=== PATIENT | male | born 1990 | race Caucasian/White ===

== ENCOUNTER 2020-04-06 07:30 | Inpatient (IN) | payer OTHER, SELFPAY ==
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
[2020-04-06] MEDS: ondansetron HCL 4 MG/2 ML VIAL IVPUSH ×2 (07:45→11:43)
--- NOTE | 2020-04-06 07:45 | ECG_ITS ---
Test Reason : NAUSEA Blood Pressure : / mmHG Vent. Rate : 055 BPM Atrial Rate : 055 BPM P-R Int : 116 ms QRS Dur : 084 ms QT Int : 462 ms P-R-T Axes : 068 053 066 degrees QTc Int : 441 ms Sinus bradycardia with sinus arrhythmia T-wave inversion in Septal leads Abnormal ECG No previous ECGs available Referred By: Araseli Upton Electronically Signed By:KENYA SHARMA MD
[2020-04-06] MEDS: Metoclopramide HCl 10 MG/2 ML VIAL 5 MG IVPUSH ×2 (07:51→15:41)
[2020-04-06] MEDS: 0.9 % Sodium Chloride 1,000 ML 999 ML IVCONT ×3 (07:51→11:43)
[2020-04-06] MEDS: diphenhydrAMINE HCL 50 MG/ML VIAL 25 MG IVPUSH (07:52)
[2020-04-06 07:57] VITALS: BP 126/96; PULSE 61; RESP 18; TEMP 34.9; O2SAT 100; BMI 29.8
[2020-04-06 08:04] LABS: MANUAL DIFF FLAG NO
[2020-04-06 08:06] LABS: Basophils Absolute Auto 0.1 X10*3/uL (0.0-0.2); Basophils Percent Auto 0.3 % (0-2); Eosinophils Absolute Auto 0.1 X10*3/uL (0.0-0.4); Eosinophils Percent Auto 0.9 % (0-4); Hematocrit 47.3 % (42-52); Hemoglobin 15.2 g/dl (14.0-18.0); Imm Gran Abs Auto 0.06 X10*3/uL (0.00-0.03); Imm Gran Pct Auto 0.4 % (0.0-0.4); Lymphocytes Percent Auto 13.4 % (20-40); Mean Corpuscular HGB Conc 32.1 g/dl (31.0-36.0); Mean Corpuscular Hemoglobin 27.6 pg (27.0-33.0); Mean Corpuscular Volume 85.8 fL (80-98); Mean Platelet Volume 11.1 fL (9.4-12.4); Monocytes Absolute Auto 0.5 X10*3/uL (0.1-1.2); Monocytes Percent Auto 3.5 % (2-11); Neutrophils Absolute Auto 12.2 X10*3/uL (2.0-8.3); Neutrophils Percent Auto 81.5 % (45-73); Platelet Count 226 X10*3/uL (160-400); Red Blood Count 5.51 X10*6/uL (4.60-5.80); Red Cell Distribution Width 14.3 % (11.0-16.0)
[2020-04-06] MEDS: Haloperidol Lactate 5 MG/ML VIAL IM (08:20)
--- NOTE | 2020-04-06 08:20 | PC.NURSE ---
PT CONTINUOS ON FEELING NAUSEAS, AND DRY HEAVING AFTER THE REGLAN. PT MEDICATED WITH HALDOL IM IN THE LEFT DELTOID. PT'S COLOR IMPROVING NOT PALE AT THIS TIME
[2020-04-06 08:32] LABS: Alanine Aminotransferase 23 U/L (0-40); Albumin Level 4.6 g/dL (3.5-5.0); Alkaline Phosphatase 64 U/L (39-117); Anion Gap 14 (12-20); Aspartate Amino Transferase 24 U/L (5-37); Bilirubin Direct < 0.2 mg/dL (0.0-0.5); Bilirubin Total 0.4 mg/dL (0.0-1.0); Blood Urea Nitrogen 14 mg/dL (9-16); Calcium 9.2 mg/dL (8.4-10.2); Carbon Dioxide 23 mmol/L (22-29); Chloride 104 mmol/L (96-108); Creatinine Clr Calc Pharmacy 94.1; Estimated Glomerular Filt Rate > 60; Glucose Random 143 mg/dL (60-115); Lipase 37 U/L (8-78); Magnesium 1.9 mg/dL (1.6-2.6); Potassium 4.6 mmol/l (3.3-5.1); Sodium 136 mmol/L (135-145); Total Protein 7.8 g/dL (6.5-8.0)
[2020-04-06 08:58] VITALS: BP 119/76; PULSE 55; RESP 16; O2SAT 100
[2020-04-06] MEDS: LORazepam 2 MG/ML VIAL 1 MG IVPUSH ×2 (09:11→10:25)
--- NOTE | 2020-04-06 09:45 | PC.NURSE ---
PT IS CURRENTLY RESTING IN THE STRETCHER WITH EYES SHUT, NO DRY HEAVING/VOMITING AT THIS TIME
--- NOTE | 2020-04-06 10:15 | PC.NURSE ---
PT VOMITED AGAIN, PLAN TO ADMIT TO THE HOSPITAL
[2020-04-06 10:25] VITALS: BP 117/78; PULSE 63; RESP 18; TEMP 36.7; O2SAT 100
--- NOTE | 2020-04-06 10:33 | XR_ITS ---
EXAMINATION: XR CHEST CLINICAL INFORMATION: Vomiting. COMPARISON: None TECHNIQUE: Frontal view of the chest was obtained. FINDINGS: Mild asymmetric markings are seen at the right lung base. The left lung is clear. The heart and mediastinal structures are unremarkable. XR/XR chest 1V IMPRESSION: Mild asymmetric markings at the right lung base appears to be secondary to summation artifact of overlying structures. Infiltrate or atelectasis would be less likely. If there is concern for infiltrate, a repeat study including right oblique and lateral views would be helpful.
[2020-04-06] MEDS: Famotidine/PF 20 MG/2 ML VIAL IVPUSH (11:04)
[2020-04-06 11:16] LABS: COVID-19 Test Negative (Negative); IDNOW Serial# 9DD0AD1C
--- NOTE | 2020-04-06 11:27 | PC.NURSE ---
Pt sleeping, has IVF running. HE was medicated for nausea as ordered.
[2020-04-06 11:39] VITALS: BP 107/56; PULSE 67; RESP 16; O2SAT 100
--- NOTE | 2020-04-06 11:48 | PM.IMHP ---
History of Present Illness Date of Service: 04/06/20 Chief Complaint: nausea and vomiting this is a 29-year-old male who presents to the emergency department with nausea and vomiting. Patient was in his usual state of health when he woke up this morning. He took his daily medication around 630. Shortly after he began having nausea and numerous episodes of nonbloody emesis. He also reports 1 episode of diarrhea. He has associated chills. He denies any abdominal pain. Lab work was significant for leukocytosis of 15,000 and was otherwise unremarkable. He received numerous doses of antiemetics including diphenhydramine, ondansetron, Reglan, Ativan, Haldol as well as Pepcid. However patient continued to have episodes of vomiting. He has never had a similar occurrence in the past. He denies any recent travel. He did eat a hamburger from [employer] yesterday. he denies any sick contacts. Review of Systems Review of Systems: Yes all other systems are reviewed and are negative Cardiovascular: Cardiovascular: Denies dyspnea Respiratory: Respiratory: Denies cough and Denies dyspnea Gastrointestinal: Gastrointestinal: Denies abdominal pain, Reports diarrhea, Reports nausea and Reports vomiting [facility] Medical History (Updated 04/06/20 @ 11:52 by ZOYA [place]) Depressed Marie's thyroiditis HTN (hypertension) Tobacco dependence Functional capacity: independent ambulation Family History (Updated 04/06/20 @ 11:52 by ZOYA [place]) Other No history of heart disease Surgical History (Updated 04/06/20 @ 11:52 by ZOYA [place]) H/O right inguinal hernia repair Social History (Updated 04/06/20 @ 11:52 by ZOYA [place]) Alcohol intake: never Smoking Status: Current every day smoker Packs Per Day: 0.5 Use of substances other than those prescribed or required for medical reasons: Yes Substance Use Type: Marijuana Substance Use Frequency: Daily Last Used Substance: Hours (ago) Any prior treatment program specific to substance use: No Advance Directives: No Advance Directives Information Provided: No Meds Allergies Allergy/AdvReac Type Severity Reaction Status Date / Time No Known Allergies Allergy Verified 04/06/20 07:45 Home Medications Medication Instructions Recorded Confirmed Type aripiprazole [Abilify] 1 tab PO DAILY 04/06/20 04/06/20 History atenolol 25 mg PO DAILY 04/06/20 04/06/20 History fluvoxamine 1 tab PO BID 04/06/20 04/06/20 History hydroxyzine HCl 1 mg PO TID 04/06/20 04/06/20 History lisdexamfetamine [Vyvanse] 1 cap PO QAM 04/06/20 04/06/20 History prazosin 1 mg PO TID 04/06/20 04/06/20 History Physical Exam Vital Signs and Narrative: Vital Signs: Last Vital Signs Temp 98.0 F 04/06/20 10:25 Pulse 67 04/06/20 11:39 Resp 16 04/06/20 11:39 BP 107/56 L 04/06/20 11:39 Pulse Ox 100 04/06/20 11:39 Body Mass Index 29.8 Const: Nutritional Appearance: well nourished Orientation/consciousness: patient oriented x3 HENMT: Head: Yes normocephalic and Yes atraumatic Eyes: Sclerae: sclerae normal Chest: Chest palpation & inspection: normal inspection of the chest Resp: Effort & Inspection: normal respiratory effort and no respiratory distress Auscultation: clear to auscultation bilaterally Cardio: Rate: regular rate Rhythm: regular rhythm GI: Palpation (GI): Soft to palpation and nontender Skin: General skin exam: no rashes or lesions noted Neuro: General: patient oriented x3 Cranial nerves: Yes CN's II-XII intact bilaterally and Yes Bilaterally intact EOM present Extrem: General: Yes normal to inspection Results Labs CBC and Chem 7: 04/06/20 07:56 04/06/20 07:56 Labs: Laboratory Results - last 24 hr 04/06/20 04/06/20 04/06/20 07:56 07:56 07:56 MCV 85.8 MCH 27.6 MCHC 32.1 RDW 14.3 Plt Count 226 MPV 11.1 Immature Gran % (Auto) 0.4 Neut % (Auto) 81.5 H Lymph % (Auto) 13.4 L [place] % (Auto) 3.5 Eos % (Auto) 0.9 Baso % (Auto) 0.3 Lymph # (Auto) 2.0 [place] # (Auto) 0.5 Eos # (Auto) 0.1 Baso # (Auto) 0.1 Abs Immat Gran (auto) 0.06 H Absolute Neuts (auto) 12.2 H Absolute Nucleated RBC 0.000 Nucleated RBC % (auto) 0.0 Hold Blue Top SEE NOTE Anion Gap 14 Estim Creat Clear Calc 94.1 Estimated GFR > 60 Random Glucose 143 H Calcium 9.2 Magnesium 1.9 Total Bilirubin 0.4 Direct Bilirubin < 0.2 AST 24 ALT 23 Alkaline Phosphatase 64 Total Protein 7.8 Albumin 4.6 Lipase 37 COVID-19 ([facility]) COVID-19 Clin Com 04/06/20 10:29 MCV MCH MCHC RDW Plt Count MPV Immature Gran % (Auto) Neut % (Auto) Lymph % (Auto) [place] % (Auto) Eos % (Auto) Baso % (Auto) Lymph # (Auto) [place] # (Auto) Eos # (Auto) Baso # (Auto) Abs Immat Gran (auto) Absolute Neuts (auto) Absolute Nucleated RBC Nucleated RBC % (auto) Hold Blue Top Anion Gap Estim Creat Clear Calc Estimated GFR Random Glucose Calcium Magnesium Total Bilirubin Direct Bilirubin AST ALT Alkaline Phosphatase Total Protein Albumin Lipase COVID-19 ([facility]) Negative COVID-19 Clin Com See Note Imaging Radiologist's Impressions: Impressions Chest X-Ray 04/06/20 10:33 IMPRESSION: Mild asymmetric markings at the right lung base appears to be secondary to summation artifact of overlying structures. Infiltrate or atelectasis would be less likely. If there is concern for infiltrate, a repeat study including right oblique and lateral views would be helpful. Assessment and Plan (1) Vomiting: Qualifiers: Nausea presence: with nausea Vomiting Intractability: intractable Vomiting type: unspecified Qualified Code(s): R11.2 - Nausea with vomiting, unspecified Status: Acute this is a 29-year-old male with a history of hypertension, depression, thyroid disease who presents with intractable nausea and vomiting. Intractable nausea and vomiting possibly related to underlying marijuana use - IV fluid, antiemetics, supportive care QTC today normal, will repeat EKG in a.m. given his numerous meds received in the ED in multiple medications which can prolonged QT leukocytosis likely reactive, follow CBC tobacco dependence - nicotine replacement therapy hypertension blood pressure soft - hold atenolol mood continue home medications DVT prophylaxis- low risk mechanical devices code status- full code this case was discussed with
[2020-04-06 12:34] VITALS: BP 111/78; PULSE 69; RESP 16; O2SAT 100
[2020-04-06 14:39] VITALS: BP 128/67; PULSE 67; RESP 17; TEMP 36.2; O2SAT 100
[2020-04-06 15:19] LABS: Glucose, Whole Blood 118 mg/dL (60-115)
--- NOTE | 2020-04-06 15:30 | PM.EVENT ---
Event Note Date of Service: 04/06/20 Event Note: 29-year-old gentleman with past medical history of Marie's thyroiditis, history of hypertension and depression presented to [facility] with acute onset of nausea vomiting with multiple episodes of nonbloody emesis [place] [id number] patient received multiple dosages of anti emetics and anxiolytics and Pepcid in the ER but since symptoms persisted patient has been admitted for intractable nausea vomiting examination vitals stable abdominal examination nontender, extremities no edema assessment and plan intractable nausea vomiting agree with treatment plan as per APC
[2020-04-06] MEDS: 0.9 % Sodium Chloride Flush 3 ML SYRINGE IVFLUSH (15:45)
[2020-04-06] MEDS: 0.9 % Sodium Chloride 1,000 ML 125 ML IVCONT (15:46)
--- NOTE | 2020-04-06 17:25 | PC.NURSE ---
Patient left AMA, educated on risks of leaving, signs and sx to return to ED. Pt verbalized understanding. aware. IV removed. AMA papers signed.
--- NOTE | 2020-05-03 18:56 | PM.EVENT ---
Event Note Date of Service: 04/06/20 Event Note: Discharge diagnosis Intractable nausea vomiting Leukocytosis Tobacco dependence Hypertension Hospital course 29-year-old male with history of hypertension depression admitted to [facility] due to intractable nausea vomiting likely related to marijuana use patient was treated with IV fluids antiemetics after receiving above medications patient started feeling better and decided to leave against medical advice. Patient awake alert and able to make decision.
== END 2020-04-06 17:28 | disposition left against medical advice (07) | DRG 392 ==
LOC: HO.ED 10:14 → HO.S3 12:36
PROVIDERS: Admitting Provider Hospitalist; Emergency Provider Emergency Medicine; Visit Provider Hospitalist
DX: R11.2 Nausea with vomiting, unspecified (principal); Z20.828 Contact with and (suspected) exposure to other viral communicable diseases; F17.210 Nicotine dependence, cigarettes, uncomplicated; I10 Essential (primary) hypertension; D72.829 Elevated white blood cell count, unspecified; F32.9 Major depressive disorder, single episode, unspecified; Z71.6 Tobacco abuse counseling; Z79.899 Other long term (current) drug therapy
CPT/HCPCS: 36415; 71045; 80048; 80076; 82947; 83690; 83735; 85025; 87635; 93005; 96361; 96372; 96374; 96375; 96376; 99284; 99291; J1200; J2060; J2405; J2765

== ENCOUNTER 2020-04-06 21:40 | Observation (INO) | payer OTHER, SELFPAY ==
[2020-04-06 21:53] VITALS: BP 131/77; PULSE 67; RESP 18; TEMP 36.2; O2SAT 98; BMI 25.5
--- NOTE | 2020-04-06 22:21 | ECG_ITS ---
Test Reason : VOMITING Blood Pressure : / mmHG Vent. Rate : 048 BPM Atrial Rate : 048 BPM P-R Int : 112 ms QRS Dur : 070 ms QT Int : 482 ms P-R-T Axes : 058 054 065 degrees QTc Int : 430 ms Sinus bradycardia with sinus arrhythmia Otherwise normal ECG When compared with ECG of 06-APR-2020 07:52, No significant change was found Referred By: Amanda Núñez Electronically Signed By:KENYA SHARMA MD
[2020-04-06 22:27] VITALS: BP 122/65; PULSE 56; RESP 19; TEMP 37; O2SAT 100
[2020-04-06] MEDS: 0.9 % Sodium Chloride 1,000 ML 1000 ML IV (22:50)
[2020-04-06] MEDS: diphenhydrAMINE HCL 50 MG/ML VIAL IVPUSH (23:16)
[2020-04-06] MEDS: ondansetron HCL 4 MG/2 ML VIAL IVPUSH (23:16)
[2020-04-06] MEDS: Metoclopramide HCl 10 MG/2 ML VIAL IVPUSH (23:16)
--- NOTE | 2020-04-06 23:16 | ED.NAVMDI ---
HPI - Nausea/Vomiting/Diarrhea General Chief complaint: Nausea/Vomiting/Diarrhea Stated complaint: Vomiting Time Seen by Provider: 04/06/20 22:20 Source: patient Mode of arrival: ambulatory Limitations: no limitations History of Present Illness HPI Narrative: This is a 29-year-old male who presents after having signed out AMA earlier in the evening when he was admitted for intractable nausea / vomiting/ with few episodes of nonbloody diarrhea earlier in the day. Patient once and again has complaints of inability to control nausea and vomiting and endorses the last use of cannabis was yesterday. Otherwise, denies any contaminated food, chills, fever, urinary symptoms. Related Data Home Medications Medication Instructions Recorded Confirmed aripiprazole [Abilify] 20 mg PO DAILY 04/06/20 04/07/20 atenolol 25 mg PO DAILY 04/06/20 04/07/20 fluvoxamine 100 mg PO BID 04/06/20 04/07/20 hydroxyzine HCl 50 mg PO TID 04/06/20 04/07/20 lisdexamfetamine [Vyvanse] 30 mg PO QAM 04/06/20 04/07/20 prazosin 1 mg PO TID 04/06/20 04/07/20 Allergies Allergy/AdvReac Type Severity Reaction Status Date / Time No Known Allergies Allergy Verified 04/06/20 07:45 Review of Systems Review of Systems: Pertinent positives and negatives as stated in HPI 10 point review systems is otherwise. FOR[facility]LY [facility] Past Medical History Source: nursing notes reviewed Medical History (Updated 04/07/20 @ 03:24 by Alonso Patel MD) Depressed Marie's thyroiditis HTN (hypertension) Tobacco dependence Surgical History H/O right inguinal hernia repair Family History Family History Other No history of heart disease Social History Social History Alcohol intake: never Smoking Status: Current every day smoker Packs Per Day: 0.5 Use of substances other than those prescribed or required for medical reasons: Yes Substance Use Type: Marijuana Advance Directives: No Physical Exam Vital Signs: Vital Signs: Last Vital Signs Temp 97.9 F 04/07/20 01:54 Pulse 56 04/07/20 02:00 Resp 16 04/07/20 02:00 BP 118/79 04/07/20 02:00 Pulse Ox 100 04/07/20 02:00 Body Mass Index 25.5 VITAL SIGNS: Reviewed. GENERAL: Well developed, well nourished, in no acute distress. HEAD: Normocephalic/atraumatic, EYES: PERRLA, EOMI intact without pain, no nystagmus/pallor/icterus noted EARS: Ext canals without abnormality, TMs non-bulging and non-erythematous NOSE: Nares patent bilateral OROPHARYNX: no oral lesions noted, posterior pharynx clear and non-erythematous without noted tonsillar enlargement/erythema/exudates NECK: Supple, no adenopathy LUNGS: Normal breath sounds. No adventitious sounds or accessory muscle use. SpO2<100> CARDIOVASCULAR: Regular rate and rhythm without noted murmurs, no JVD or lower extremity edema. ABDOMEN: Soft, non-tender, non-distended with bowel sounds. No rigidity. No guarding. No palpable masses or hernias noted MUSCULOSKELETAL: No tenderness, deformities, or effusions noted on gross inspection. EXTREMITIES: No cyanosis, clubbing or edema. SKIN: Inspection of the skin reveals no rashes, ulcerations, jaundice, pallor, or petechiae. NEUROLOGIC: Alert and oriented x 4. Strength and sensation to light touch were grossly intact x 4. Course Course Course Narrative: This is a 29-year-old male with history and clinical presentation consistent with viral,cyclic,cannabis. I discussed the case with inpatient hospitalist team who is agreeable for readmission. Patient will receive IV fluids, antiemetics. I discussed the case with the inpatient hospitalist team who is agreeable for readmission. MDM - Nausea/Vomiting/Diarrhea Lab Data Result diagrams: 04/06/20 23:14 04/06/20 23:14 Labs: Lab Results 04/06/20 04/06/20 04/07/20 Range/Units 23:14 23:14 00:33 WBC 21.3 H (4.8-10.8) X10*3/uL RBC 5.18 (4.60-5.80) X10*6/uL Hgb 14.4 (14.0-18.0) g/dl Hct 44.5 (42-52) % MCV 85.9 (80-98) fL MCH 27.8 (27.0-33.0) pg MCHC 32.4 (31.0-36.0) g/dl RDW 14.6 (11.0-16.0) % Plt Count 170 (160-400) X10*3/uL MPV 11.1 (9.4-12.4) fL Immature Gran % (Auto) 0.4 (0.0-0.4) % Neut % (Auto) 89.7 H (45-73) % Lymph % (Auto) 7.0 L (20-40) % [place] % (Auto) 2.7 (2-11) % Eos % (Auto) 0.1 (0-4) % Baso % (Auto) 0.1 (0-2) % Lymph # (Auto) 1.5 (1.2-4.9) X10*3/uL [place] # (Auto) 0.6 (0.1-1.2) X10*3/uL Eos # (Auto) 0.0 (0.0-0.4) X10*3/uL Baso # (Auto) 0.0 (0.0-0.2) X10*3/uL Abs Immat Gran (auto) 0.08 H (0.00-0.03) X10*3/uL Absolute Neuts (auto) 19.1 H (2.0-8.3) X10*3/uL Absolute Nucleated RBC 0.000 (0.0-0.012) X10*3/uL Nucleated RBC % (auto) 0.0 (0.0-0.2) /100WBC Sodium 136 (135-145) mmol/L Potassium 4.0 (3.3-5.1) mmol/l Chloride 107 (96-108) mmol/L Carbon Dioxide 15 L (22-29) mmol/L Anion Gap 18 (12-20) BUN 12 (9-16) mg/dL Creatinine 0.83 (0.5-1.4) mg/dL Estim Creat Clear Calc 123.8 Estimated GFR > 60 Random Glucose 109 (60-115) mg/dL Calcium 8.2 L D (8.4-10.2) mg/dL Total Bilirubin 0.6 (0.0-1.0) mg/dL AST 34 D (5-37) U/L ALT 22 (0-40) U/L Alkaline Phosphatase 58 (39-117) U/L Total Protein 7.5 (6.5-8.0) g/dL Albumin 4.4 (3.5-5.0) g/dL Lipase 23 (8-78) U/L Urine Color YELLOW Urine Appearance HAZY Urine pH 5.5 (5.0-8.0) Ur Specific [place] >= 1.030 H (1.005-1.025) Urine Protein TRACE (NEG-TRACE) MG/DL Urine Glucose (UA) NEG (NEG) MG/DL Urine Ketones 40 (NEG) MG/DL Urine Blood 3+ H (NEG) Urine Nitrite NEG (NEG) Ur Leukocyte Esterase NEG (NEG) Urine RBC 30-49 H (0) /HPF Urine WBC 0-2 (0-4) /HPF Ur Squamous Epith Cells 3+ /LPF Urine Bacteria TRACE /LPF Urine Mucus 2+ /LPF Discharge Plan Discharge Clinical Impression: Intractable cyclical vomiting with nausea Patient Disposition: Admitted As Inpatient
--- NOTE | 2020-04-06 23:23 | PC.NURSE ---
20g right hand in place patent and infusing ns. iv place by a different rn.
[2020-04-06 23:24] VITALS: BP 116/72; PULSE 70; RESP 16; TEMP 37.2; O2SAT 100
[2020-04-06 23:27] LABS: Basophils Percent Auto 0.1 % (0-2); Eosinophils Percent Auto 0.1 % (0-4); Hematocrit 44.5 % (42-52); Hemoglobin 14.4 g/dl (14.0-18.0); Imm Gran Abs Auto 0.08 X10*3/uL (0.00-0.03); Imm Gran Pct Auto 0.4 % (0.0-0.4); Lymphocytes Absolute Auto 1.5 X10*3/uL (1.2-4.9); MANUAL DIFF FLAG NO; Mean Corpuscular HGB Conc 32.4 g/dl (31.0-36.0); Mean Corpuscular Hemoglobin 27.8 pg (27.0-33.0); Mean Corpuscular Volume 85.9 fL (80-98); Mean Platelet Volume 11.1 fL (9.4-12.4); Monocytes Absolute Auto 0.6 X10*3/uL (0.1-1.2); Monocytes Percent Auto 2.7 % (2-11); Neutrophils Absolute Auto 19.1 X10*3/uL (2.0-8.3); Neutrophils Percent Auto 89.7 % (45-73); Platelet Count 170 X10*3/uL (160-400); Red Blood Count 5.18 X10*6/uL (4.60-5.80); Red Cell Distribution Width 14.6 % (11.0-16.0); White Blood Count 21.3 X10*3/uL (4.8-10.8)
[2020-04-06 23:52] LABS: Alanine Aminotransferase 22 U/L (0-40); Albumin Level 4.4 g/dL (3.5-5.0); Alkaline Phosphatase 58 U/L (39-117); Anion Gap 18 (12-20); Aspartate Amino Transferase 34 U/L (5-37); Bilirubin Total 0.6 mg/dL (0.0-1.0); Blood Urea Nitrogen 12 mg/dL (9-16); Calcium 8.2 mg/dL (8.4-10.2); Carbon Dioxide 15 mmol/L (22-29); Chloride 107 mmol/L (96-108); Creatinine Clr Calc Pharmacy 123.8; Estimated Glomerular Filt Rate > 60; Glucose Random 109 mg/dL (60-115); Lipase 23 U/L (8-78); Sodium 136 mmol/L (135-145); Total Protein 7.5 g/dL (6.5-8.0)
[2020-04-07] VITALS (9 sets, daily range): BP systolic 116–131; BP diastolic 65–85; PULSE 50–68; RESP 16–18; TEMP 36.6–37.2; O2SAT 98–100
[2020-04-07] MEDS: Famotidine/PF 20 MG/2 ML VIAL IVPUSH (00:30)
[2020-04-07 00:46] LABS: Glucose Urine UA NEG (NEG); Leukocyte Esterase Urine NEG (NEG); Nitrite Urine NEG (NEG); PH 5.5 (5.0-8.0); Specific Gravity - Urine >= 1.030 (1.005-1.025); Urine Blood 3+ (NEG); Urine Ketones 40 MG/DL (NEG); Urine Protein TRACE MG/DL (NEG-TRACE)
[2020-04-07 00:47] LABS: Appearance Urine HAZY; Color Urine YELLOW
[2020-04-07 00:54] LABS: Bacteria Urine TRACE /LPF; Mucus Urine 2+ /LPF; RBC Urine 30-49 /HPF (0); Squamous Epithelial Cell Urine 3+ /LPF; WBC Urine 0-2 /HPF (0-4)
--- NOTE | 2020-04-07 01:57 | PC.NURSE ---
iv to the right hand dc due to painfull and not infusing well.
--- NOTE | 2020-04-07 03:05 | P.HPHOSP_ITS ---
History of Present Illness Date of Service: 04/07/20 Chief Complaint: nausea vomiting this is a 29-year-old male with history of Marie's thyroiditis, hypertension who presents to the hospital with complaints of nausea vomiting x1 day. Patient also has diarrhea, denies any previous similar episode. patient was at the ED earlier in the day for the similar but signed out AMA, returns now stating that he has difficulty controlling vomiting. Continues to be nauseous at this time. Has no abdominal pain. Reports Ingesting leftover food. patient has no headache, change in vision, chest pain or shortness of breath, no urinary symptoms and no lower extremity edema. On arrival to the ED hemodynamically stable with no significant abnormal vitals Labs are significant for WBC of 21.3, otherwise unremarkable. Past medical history: Hypertension, Marie thyroiditis past surgical history : Right inguinal hernia repaired Family history: Denies Social history: Comes from home, denies tobacco, alcohol use. Smokes marijuana daily Review of Systems Review of Systems: Yes all other systems are reviewed and are negative [facility] Medical History Depressed Marie's thyroiditis HTN (hypertension) Tobacco dependence Family History Other No history of heart disease Surgical History H/O right inguinal hernia repair Social History Alcohol intake: never Smoking Status: Current every day smoker Packs Per Day: 0.5 Use of substances other than those prescribed or required for medical reasons: Yes Substance Use Type: Marijuana Advance Directives: No Meds Allergies Allergy/AdvReac Type Severity Reaction Status Date / Time No Known Allergies Allergy Verified 04/06/20 07:45 Home Medications Medication Instructions Recorded Confirmed Type aripiprazole [Abilify] 20 mg PO DAILY 04/06/20 04/06/20 History atenolol 25 mg PO DAILY 04/06/20 04/06/20 History fluvoxamine 100 mg PO BID 04/06/20 04/06/20 History hydroxyzine HCl 50 mg PO TID 04/06/20 04/06/20 History lisdexamfetamine [Vyvanse] 30 mg PO QAM 04/06/20 04/06/20 History prazosin 1 mg PO TID 04/06/20 04/06/20 History Physical Exam Vital Signs and Narrative: Vital Signs: Last Vital Signs Temp 97.9 F 04/07/20 01:54 Pulse 56 04/07/20 01:54 Resp 16 04/07/20 01:54 BP 118/79 04/07/20 01:54 Pulse Ox 100 04/07/20 01:54 Body Mass Index 25.5 Const: General: cooperative and no acute distress Orientation/consciousness: patient oriented x3 Eyes: General: appearance normal, both eyes and all related structures Pupils: Equal, round and reactive pupils present Resp: Effort & Inspection: normal respiratory effort and able to speak in co mplete sentences Auscultation: clear to auscultation bilaterally Cardio: Rate: regular rate Rhythm: regular rhythm GI: Palpation (GI): Soft to palpation Auscultation: normal bowel sounds Skin: General skin exam: no rashes or lesions noted Neuro: General: patient oriented x3 Cranial nerves: Yes Equal, round and reactive pupils present Cognition (Neuro): normal cognition Extrem: General: Yes normal to inspection and Yes no pedal edema Results Labs CBC and Chem 7: 04/06/20 23:14 04/06/20 23:14 Labs: Laboratory Results - last 24 hr 04/06/20 04/06/20 04/07/20 23:14 23:14 00:33 MCV 85.9 MCH 27.8 MCHC 32.4 RDW 14.6 Plt Count 170 MPV 11.1 Immature Gran % (Auto) 0.4 Neut % (Auto) 89.7 H Lymph % (Auto) 7.0 L [place] % (Auto) 2.7 Eos % (Auto) 0.1 Baso % (Auto) 0.1 Lymph # (Auto) 1.5 [place] # (Auto) 0.6 Eos # (Auto) 0.0 Baso # (Auto) 0.0 Abs Immat Gran (auto) 0.08 H Absolute Neuts (auto) 19.1 H Absolute Nucleated RBC 0.000 Nucleated RBC % (auto) 0.0 Anion Gap 18 Estim Creat Clear Calc 123.8 Estimated GFR > 60 Random Glucose 109 Calcium 8.2 L D Total Bilirubin 0.6 AST 34 D ALT 22 Alkaline Phosphatase 58 Total Protein 7.5 Albumin 4.4 Lipase 23 Urine Color YELLOW Urine Appearance HAZY Urine pH 5.5 Ur Specific [place] >= 1.030 H Urine Protein TRACE Urine Glucose (UA) NEG Urine Ketones 40 Urine Blood 3+ H Urine Nitrite NEG Ur Leukocyte Esterase NEG Urine RBC 30-49 H Urine WBC 0-2 Ur Squamous Epith Cells 3+ Urine Bacteria TRACE Urine Mucus 2+ Assessment and Plan (1) Nausea vomiting and diarrhea: Status: Acute (2) Marie's thyroiditis: Status: Acute (3) HTN (hypertension): Status: Acute (4) Depressed: Status: Acute this is a 29-year-old male with past medical history as above who presents to the hospital with intractable nausea vomiting and diarrhea. # Nausea vomiting and diarrhea - Most likely secondary to viral gastroenteritis versus cyclic vomiting syndrome - no abnormal electrolytes, diarrhea nonbloody plan: - Antiemetics - IV fluids - supportive measures # hypertension - stable - continue atenolol # depression - continue fluvoxamine, Abilify as well as hydroxyzine DVT prophylaxis: early ambulation
[2020-04-07] MEDS: ondansetron HCL 4 MG/2 ML VIAL IVPUSH ×2 (03:40→13:10)
[2020-04-07] MEDS: Lactated Ringers 1,000 ML 80 ML IVCONT (03:47)
[2020-04-07] MEDS: Prochlorperazine Edisylate 10 MG/2 ML VIAL 5 MG IVPUSH ×2 (04:23→10:37)
--- NOTE | 2020-04-07 04:45 | PC.NURSE ---
pt medicated with compazine and pt is now sleeping. pt prior has been vomiting clear bile. skin pale and warm steady gait.
--- NOTE | 2020-04-07 05:48 | PC.NURSE ---
pt is sleeping and no longer n/v.
--- NOTE | 2020-04-07 06:21 | PC.NURSE ---
pt was medicated with a prn zofran order. duplicate order entered by dr borges but not given. pt at this time is n/v free and pain free. vitals stable lactated ringer 80cc/hr infusing.
--- NOTE | 2020-04-07 07:16 | PC.NURSE ---
REPORT FROM EDMOND RN, PT SLEEPING AT THIS TIME, PINK, RESPIRATIONS EASY AND EVEN, WAITING FOR ADMISSION
--- NOTE | 2020-04-07 08:39 | PC.NURSE ---
POOR INTAKE, DOESN'T FEEL LIKE EATING BREAKFAST
--- NOTE | 2020-04-07 08:48 | PC.NURSE ---
PT STATING THAT SHE FEELS BETTER AND WANTS TO SIGN OUT AMA ATTEMPTING TO INFORM THE HOSPITALIST
--- NOTE | 2020-04-07 09:09 | PC.NURSE ---
PT CONTINUES TO CHEW ON ICE CHIPS, NO VOMITING NOTED
--- NOTE | 2020-04-07 09:41 | PC.NURSE ---
DR DAVID AWARE THAT THIS PATINET WANTS TO SIGN AMA
--- NOTE | 2020-04-07 10:38 | PC.NURSE ---
MEDICATED FOR NAUSEA AND VOMITING
--- NOTE | 2020-04-07 13:05 | PC.NURSE ---
HAS BEEN SLEEPING. AWAKE NOW. STATES NAUSEA IS MUCH IMPROVED. AWAITS ADMISSION
--- NOTE | 2020-04-07 15:17 | PC.NURSE ---
report called to [email or web address]
[2020-04-07 16:12] LABS: Basophils Percent Auto 0.2 % (0-2); Eosinophils Percent Auto 0.1 % (0-4); Hematocrit 40.7 % (42-52); Hemoglobin 13.3 g/dl (14.0-18.0); Imm Gran Abs Auto 0.13 X10*3/uL (0.00-0.03); Imm Gran Pct Auto 0.8 % (0.0-0.4); Lymphocytes Absolute Auto 2.3 X10*3/uL (1.2-4.9); MANUAL DIFF FLAG NO; Mean Corpuscular HGB Conc 32.7 g/dl (31.0-36.0); Mean Corpuscular Hemoglobin 27.8 pg (27.0-33.0); Mean Corpuscular Volume 85.1 fL (80-98); Mean Platelet Volume 10.7 fL (9.4-12.4); Monocytes Absolute Auto 1.1 X10*3/uL (0.1-1.2); Monocytes Percent Auto 7.1 % (2-11); Neutrophils Percent Auto 76.8 % (45-73); Platelet Count 192 X10*3/uL (160-400); Red Blood Count 4.78 X10*6/uL (4.60-5.80); Red Cell Distribution Width 14.4 % (11.0-16.0); White Blood Count 15.6 X10*3/uL (4.8-10.8)
[2020-04-07 16:40] LABS: Anion Gap 15 (12-20); Blood Urea Nitrogen 13 mg/dL (9-16); Carbon Dioxide 24 mmol/L (22-29); Chloride 105 mmol/L (96-108); Creatinine Clr Calc Pharmacy 118.1; Estimated Glomerular Filt Rate > 60; Glucose Random 91 mg/dL (60-115); Potassium 3.5 mmol/l (3.3-5.1); Sodium 140 mmol/L (135-145)
[2020-04-07] MEDS: hydrOXYzine HCL 50 MG TABLET PO (16:46)
--- NOTE | 2020-04-07 18:17 | PC.NURSE ---
PATIENT BROUGHT UP TO THE FLOOR FROM THE ED. PT WENT INTO THE SHOWER AND REMOVED OWN IV. PT RINGING CALL MELENDEZ REQUESTING NAUSEA MEDICATION. IV INSERTION KIT BROUGHT INTO ROOM AND UNABLE TO BE SUCCESSFUL FIRST TRY. PT EDUCATED ABOUT PLAN OF CARE FOR IV FLUIDS,IV ANTIEMETICS/SUPPORTIVE CARE OVERNIGHT. PT REQUESTED TO SIGN OUT AMA BECAUSE HE FEELS HE CAN MANAGE HIS SYMPTOMS AT HOME. HOSPITALIST CATALOGING ASSISTANT NOTIFIED. PATIENT AGAIN EDUCATED AGAINST AMA. PATIENT SIGNED AMA FORM. HOSPITALIST MADE AWARE.
== END 2020-04-07 17:30 | disposition left against medical advice (07) ==
LOC: HO.ED 04-07 00:17 → HO.IMC 04-07 14:26
PROVIDERS: Hospitalist; Admitting Provider Internal Medicine; Emergency Provider Student in an Organized Health Care Education/Training Program; Visit Provider Internal Medicine
DX: R11.15 Cyclical vomiting syndrome unrelated to migraine (principal); R19.7 Diarrhea, unspecified; R00.1 Bradycardia, unspecified; F32.9 Major depressive disorder, single episode, unspecified; I10 Essential (primary) hypertension; E06.3 Autoimmune thyroiditis; F12.20 Cannabis dependence, uncomplicated; F17.210 Nicotine dependence, cigarettes, uncomplicated; Z79.899 Other long term (current) drug therapy
CPT/HCPCS: 36415; 80048; 80053; 81001; 83690; 85025; 93005; 99219; 99284; J1200; J2405; J2765